=== PATIENT | male | born 1985 | race Caucasian/White ===

== ENCOUNTER 2018-08-12 16:35 | Emergency (ER) | payer OTHER, SELFPAY ==
[2018-08-12 16:50] VITALS: BP 126/85; PULSE 70; RESP 18; TEMP 36.8; O2SAT 100; BMI 33.6
--- NOTE | 2018-08-12 18:13 | ED.WOUNDLAC ---
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 lower lip and cheek on the edge of a metal box while at work about 2p.m. and comes in thinking he probably needs some stitches. He denies any other injury. He states his last tetanus vaccine was in 2014. he is not having any difficulty swallowing, chewing, or with any weakness in the face. He denies any other complaints Related Data Home Medications Medication Instructions Recorded Confirmed No Known Home Medications 08/12/18 08/12/18 Allergies Allergy/AdvReac Type Severity Reaction Status Date / Time No Known Allergies Allergy Uncoded 08/12/18 16:56 Review of Systems <Jovanna Auguste PA-C - Last Filed: 08/12/18 22:06> Review of Systems All systems reviewed & are unremarkable except as noted in HPI and below Exam <Jovanna Auguste PA-C - Last Filed: 08/12/18 22:06> Narrative Exam Narrative: GENERAL APPEARANCE: Patient sitting comfortably, in no distress. LUNGS: Clear to auscultation bilaterally. HEART: Rate and rhythm regular without murmur, normal S1 and S2, no S3 or S4. DERM: 3cm superficial scabbed laceration left medial cheek extending to the outer, upper lip. Not actively bleeding, no gap. Within the margins of the lip on the anterior surface and abutting the corner of the mouth there is a 9 mm laceration which has a 0 to 3 mm gap (gaps at the center portion, not proximal or distal border). No other wounds visible Initial Vital Signs Initial Vital Signs: Vital Signs Temperature 98.3 F 08/12/18 16:50 Pulse Rate 70 08/12/18 16:50 Respiratory Rate 18 08/12/18 16:50 Blood Pressure 126/85 08/12/18 16:50 Pulse Oximetry 100 08/12/18 16:50 <Ilan Krishnamurthy DO - Last Filed: 08/13/18 00:58> Initial Vital Signs Initial Vital Signs: Vital Signs Temperature 98.3 F 08/12/18 16:50 Pulse Rate 70 08/12/18 16:50 Respiratory Rate 18 08/12/18 16:50 Blood Pressure 126/85 08/12/18 16:50 Pulse Oximetry 100 08/12/18 16:50 Procedures <SHANTE Craig Last Filed: 08/12/18 22:06> Laceration Repair Laceration 1: Site: lip Side (If applicable): left Size (cm): 9 Description: linear Depth: simple, single layer Local Anesthetic: lidocaine 1% and with epi Amount of anesthesia used (mL): 1.3 Pre-repair: wound explored and irrigated extensively Skin layer closed with: nylon Size (cm): 6-0 Number of sutures: 3 Technique: simple, interrupted Course <Jovanna Auguste PA-C - Last Filed: 08/12/18 22:06> Vital Signs - 8 hr 08/12/18 18:15 08/12/18 19:33 Temperature 97.8 F Pulse Rate 88 70 Respiratory Rate 16 16 Blood Pressure 137/78 Blood Pressure [Right Arm] 133/71 Pulse Oximetry 95 98 <Ilan Krishnamurthy DO - Last Filed: 08/13/18 00:58> Vital Signs - 8 hr 08/12/18 18:15 08/12/18 19:33 Temperature 97.8 F Pulse Rate 88 70 Respiratory Rate 16 16 Blood Pressure 137/78 Blood Pressure [Right Arm] 133/71 Pulse Oximetry 95 98 Discharge Plan Departure Patient Disposition: Home Clinical Impression: Laceration of lip, Facial laceration Discharge Date/Time: 08/12/18 19:34 Interventions: ED Discharge Assessment Last Done: 08/12/18 19:33 Instructions: DI for Laceration Repair -- Simple Activity Restrictions/Additional Instructions: please keep your wound clean and dry. You can rinse with a little warm water and pat dry. You can apply antibiotic ointment or Vaseline if your sutures start to get crusty. Avoid spicy food and drink and food with sharp edges such as crusts or chips. The suture should be ready to come out within about 5 days, so please call your PCP office on Wednesday and schedule an appointment for this. Watch for any signs of infection such as redness around the area, swelling, draining pus, or fever. Return here or to your PCP right away if any. Take ibuprofen, 600-800 mg ( 3-4 of your [id number] tablets) every 8 hr as needed for pain. Prescriptions: No Action No Known Home Medications RF: 0 Referrals: [facility] [Other] <Ilan Krishnamurthy DO - Last Filed: 08/13/18 00:58> [facility] Attending Young Attestation: I was immediately available in the department for consultation. Documentation has been reviewed. I agree with assessment and plan.
[2018-08-12 18:15] VITALS: BP 133/71; PULSE 88; RESP 16; TEMP 36.6; O2SAT 95
[2018-08-12 19:33] VITALS: BP 137/78; PULSE 70; RESP 16; O2SAT 98
== END 2018-08-12 19:34 | disposition home or self-care (01) ==
PROVIDERS: Emergency Provider Internal Medicine
DX: S01.511A Laceration without foreign body of lip, initial encounter (principal); S01.81XA Laceration without foreign body of other part of head, initial encounter; W26.8XXA Contact with other sharp object(s), not elsewhere classified, initial encounter
CPT/HCPCS: 12015; 99282; 99283